=== PATIENT | male | born 1965 | race Caucasian/White ===

== ENCOUNTER 2019-08-11 15:11 | Emergency (ER) | payer MEDICARE, OTHER, SELFPAY ==
--- NOTE | ~2019-08-11 | XR_ITS ---
EXAMINATION: XR elbow RT min 3V INDICATION: Right elbow pain TECHNIQUE: Four views of the right elbow were obtained. COMPARISON: None available FINDINGS: There is no fracture. Moderate elbow osteoarthritis is noted. There is soft tissue swelling dorsal to the olecranon. No joint effusion is identified. IMPRESSION: 1. Soft tissue swelling dorsal to the olecranon without acute osseous findings. Reviewed, dictated and finalized at location A.
[2019-08-11 15:32] VITALS: BP 116/72; PULSE 123; RESP 18; TEMP 36.4; O2SAT 99
[2019-08-11 15:40] VITALS: BP 138/83; PULSE 69; RESP 18; TEMP 36.4; O2SAT 100
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
== END 2019-08-11 16:15 | disposition home or self-care (01) ==
PROVIDERS: Emergency Provider Nurse Practitioner; PCP Internal Medicine Endocrinology, Diabetes & Metabolism
DX: S59.901A Unspecified injury of right elbow, initial encounter (principal); E11.9 Type 2 diabetes mellitus without complications; V18.0XXA Pedal cycle driver injured in noncollision transport accident in nontraffic accident, initial encounter
CPT/HCPCS: 73080; 99213; G0463

== ENCOUNTER 2020-02-19 11:26 | Emergency (ER) | payer MEDICARE, OTHER, SELFPAY ==
[2020-02-19 11:38] VITALS: BP 105/59; PULSE 87; RESP 18; TEMP 36.7; O2SAT 98
--- NOTE | 2020-02-19 11:49 | ED.GENADULT ---
HPI - General Adult General Chief complaint: Skin/Abscess/Foreign Body Stated complaint: rash Time Seen by Provider: 02/19/20 11:49 Source: patient Mode of arrival: ambulatory Limitations: no limitations History of Present Illness HPI narrative: 54-year-old male patient presents to the [facility] with complaints of a rash to the left side of the abdomen that he noticed when he first woke up this morning. Patient states it does itch and does have a burning pain to it. Patient states he did notice some pain to the left side of the ribs yesterday. Patient denies any fevers, body aches or chills. Patient states he did try using some [id number] antiitch cream on the rash without success. Related Data Home Medications Medication Instructions Recorded Confirmed amlodipine 08/11/19 atorvastatin 08/11/19 desvenlafaxine succinate mg PO 08/11/19 fenofibrate micronized mg 08/11/19 finasteride mg 08/11/19 fluoxetine mg 08/11/19 levothyroxine 08/11/19 testosterone cypionate mg 08/11/19 [place] 02/19/20 dulaglutide [Trulicity] mg SUBCUT 02/19/20 lisinopril 02/19/20 ramelteon mg PO 02/19/20 ramelteon mg PO 02/19/20 tamsulosin mg PO 02/19/20 Allergies Allergy/AdvReac Type Severity Reaction Status Date / Time Penicillins Allergy Mild RASH AN Verified 08/24/18 04:59 INFANT Review of Systems Review of Systems: Narrative: CONSTITUTIONAL: Denies fever, chills, or sweats. EYES: Denies visual changes, redness, or discharge. ENT: Denies rhinorrhea, congestion, sore throat, or otalgia. CARDIOVASCULAR: Denies chest pain, palpitations, or edema. RESPIRATORY: Denies cough or dyspnea. GASTROINTESTINAL: Denies abdominal pain, nausea, vomiting, or diarrhea. GENITOURINARY: Denies dysuria or hematuria. SKIN: Positive rash to the left abdomen with itching and burning pain since this morning MUSCULOSKELETAL: Denies back pain, joint pain, or myalgia. NEUROLOGIC: Denies headache, numbness, or weakness. PSYCHIATRIC: Denies anxiety or depression. [facility] Past Medical History Medical History (Updated 02/19/20 @ 11:56 by SHANA Espinoza) Anxiety Bunion, right foot Depression committed suicide in 2006 Diabetes Fractures Clavicle right elbow Genitourinary disorder Prostate problems GERD (gastroesophageal reflux disease) High cholesterol HTN (hypertension) Surgery, elective Ganglion cyst removed x3 Surgical History Surgical History (Updated 02/19/20 @ 11:51 by SHANA Espinoza) Hx of tonsillectomy Family History Family History Other Heart disease Social History Social History Smoking status: Never smoker Alcohol intake: never Comments At the time of my signature I agree with nursing past medical history, surgical, social, and family history. There is no relevant family history pertinent to the presenting complaint. Exam Narrative: Exam Narrative: GENERAL: Well-appearing, well-nourished, and in no acute distress. HEAD: Normocephalic, atraumatic. EYES: PERRLA and EOMI. ENT: Nares clear, no rhinorrhea or epistaxis. Mucous membranes moist. NECK: Supple. No lymphadenopathy CHEST: Clear to auscultation. No respiratory distress. HEART: Regular rate and rhythm. No murmur heard. Normal peripheral pulses. ABDOMEN: Soft, nontender, nondistended, normal active bowel sounds. EXTREMITIES: Normal range of motion. No edema. SKIN: Warm, dry, patient has a pustular rash on erythemic base that is noted along the T9 dermatome of the left side of the abdomen. It does not cross midline. There also seems to be a pustular rash noted to the left upper back along the T6 dermatome. There is no active discharge at this time. NEURO: No focal deficits. Alert and oriented x3. Course Vital Signs Vital signs: Vital signs reviewed Medical Decision Making Differential Diagnosis Differential
== END 2020-02-19 12:02 | disposition home or self-care (01) ==
PROVIDERS: Emergency Provider Nurse Practitioner Family; PCP Internal Medicine Endocrinology, Diabetes & Metabolism
DX: B02.9 Zoster without complications (principal); F41.9 Anxiety disorder, unspecified; F32.9 Major depressive disorder, single episode, unspecified; E11.9 Type 2 diabetes mellitus without complications; K21.9 Gastro-esophageal reflux disease without esophagitis; E78.00 Pure hypercholesterolemia, unspecified; I10 Essential (primary) hypertension
CPT/HCPCS: 99213; G0463

== ENCOUNTER 2020-12-23 04:35 | Emergency (ER) | payer MEDICARE, OTHER, SELFPAY ==
[2020-12-23 04:39] VITALS: BP 95/56; PULSE 73; RESP 20; TEMP 36.3; O2SAT 99
[2020-12-23 05:24] VITALS: BP 142/96; PULSE 79; PULSE 82; RESP 22; O2SAT 97
[2020-12-23] MEDS: diphenhydrAMINE HCl INJ 50 MG/ML VIAL 25 MG IV PUSH (05:57)
--- NOTE | 2020-12-23 06:05 | PC.NURSE ---
Pt arrives to ED with daughter and c/o involuntary muscle jerking and spasms, intermittent x 2 days. pt denies any new meds, ingestion of stimulants/caffeine, or any other changes. Is on many prescribed medications, including pristique, mirapex, prozac. lights dimmed. call light in reach. will continue to monitor.
--- NOTE | 2020-12-23 06:16 | ED.GENADULT ---
HPI - General Adult General Chief complaint: Unspecified Stated complaint: tics? intermittent muscle tightenging and twitchin Time Seen by Provider: 12/23/20 05:02 History of Present Illness HPI narrative: Patient is a 55-year-old male who presents the ER with muscle twitches and spasms. Began last night. This is happened to him nightly for last 3 days and they have gotten worse. Also makes him expressive facial movements like he is wincing or grimacing. He is not in pain and has difficulty controlling him. Patient is on multiple medications including lithium, Mirapex, and Topamax. He does take the Mirapex at night and symptoms seem to occur at night. No loss of consciousness/bladder/bowel. Related Data Home Medications Medication Instructions Recorded Confirmed amlodipine 08/11/19 atorvastatin 08/11/19 fenofibrate micronized mg 08/11/19 finasteride mg 08/11/19 fluoxetine 40 mg PO DAILY 08/11/19 levothyroxine 08/11/19 testosterone cypionate mg 08/11/19 lisinopril 02/19/20 lithium carbonate 900 mg PO BID 02/19/20 12/23/20 tamsulosin mg PO 02/19/20 Allergies Allergy/AdvReac Type Severity Reaction Status Date / Time Penicillins Allergy Mild RASH AN Verified 12/23/20 04:42 Review of Systems Review of Systems: All systems reviewed & are unremarkable except as noted in HPI and below Constitutional: Constitutional: Denies chills and Denies fever(s) ENT: Reports dry mouth, Denies nasal congestion and Denies sore throat Gastrointestinal: Gastrointestinal: Denies abdominal pain, Denies nausea and Denies vomiting Musculoskeletal: Musculoskeletal: Denies arthralgias, Denies joint swelling, Reports muscle cramps and Reports neck pain (Chronic) Neurologic: Denies headache(s), Denies focal weakness and Reports seizure-like activity Psychiatric: Psychiatric: Denies anxiety and Denies depression PMF Past Medical History Medical History (Updated 12/23/20 @ 06:58 by Bhaskar Fofana MD) Anxiety Bunion, right foot Depression committed suicide in 2006 Diabetes Fractures Clavicle right elbow Genitourinary disorder Prostate problems GERD (gastroesophageal reflux disease) High cholesterol HTN (hypertension) Surgery, elective Ganglion cyst removed x3 Surgical History Surgical History (Updated 02/19/20 @ 11:51 by SHANA Espinoza) Hx of tonsillectomy Family History Family History Other Heart disease Social History Social History Smoking status: Never smoker Alcohol intake: never Exam Narrative: GENERAL: Well-appearing, well-nourished, and in no acute distress. HEAD: Normocephalic, atraumatic. EYES: PERRLA and EOMI. ENT: Mucous membranes moist. CHEST: Clear to auscultation. No respiratory distress. HEART: Regular rate and rhythm. Normal peripheral pulses. EXTREMITIES: Normal range of motion. No edema. SKIN: Warm, dry, no rash. NEURO: No focal deficits. Intermittent grimacing and squinting of the eyes. No rhythmic movements such as seizure. Patient is persistently moving his arms and legs and stretching type motions. He is able to briefly stop the movements at times. Alert and oriented x3. PSYCH: Normal mood and affect. Course Course Emergency Course: Seems to have dyskinesia related to medications. Strongly suspect Mirapex. Patient's movements have improved significantly with IV Benadryl. Labs pending. Reevaluation(s) Reevaluation #1: Patient informed results. He does not wish to have another IV dose of Benadryl but will take an oral pill before he leaves. Encouraged hydration at home. Patient will discontinue Mirapex and contact his PCP. Date: 12/23/20 Time: 06:56 Vital Signs Vital signs: Vital Signs Temperature 97.3 F L 12/23/20 04:39 Pulse Rate 73 12/23/20 04:39 Respiratory Rate 20 12/23/20 04:39 Blood Pressure 95/56
[2020-12-23 06:26] LABS: Anion Gap 10 mmol/L (8-16); Blood Urea Nitrogen 40 mg/dL (9-20); Calcium 10.2 mg/dL (8.4-10.2); Carbon Dioxide 21 mmol/L (22-30); Chloride 107 mmol/L (98-107); Estimated CRCL calculation 48 ml/min; Estimated Glomerular Filt Rate 42; Glucose 112 mg/dL (65-110); Magnesium 2.4 mg/dL (1.6-2.3); Potassium 5.5 mmol/L (3.4-5.0); Sodium 138 mmol/L (137-145)
[2020-12-23 06:46] LABS: Lithium 1.2 mmol/L (0.6-1.2)
[2020-12-23] MEDS: diphenhydrAMINE HCl CAP 25 MG CAPSULE PO (07:24)
[2020-12-23 07:31] VITALS: BP 133/86; PULSE 60; RESP 18; O2SAT 96
== END 2020-12-23 07:33 | disposition home or self-care (01) ==
PROVIDERS: Emergency Provider Emergency Medicine; PCP Internal Medicine Endocrinology, Diabetes & Metabolism
DX: G24.09 Other drug induced dystonia (principal); T42.8X5A Adverse effect of antiparkinsonism drugs and other central muscle-tone depressants, initial encounter; K21.9 Gastro-esophageal reflux disease without esophagitis; E78.00 Pure hypercholesterolemia, unspecified; I10 Essential (primary) hypertension; E11.9 Type 2 diabetes mellitus without complications; F32.9 Major depressive disorder, single episode, unspecified; F41.9 Anxiety disorder, unspecified
CPT/HCPCS: 36415; 80048; 80178; 83735; 96374; 99284; A9270; J1200

== ENCOUNTER 2021-10-10 15:49 | Emergency (ER) | payer MEDICARE, OTHER, SELFPAY ==
[2021-10-10 16:18] VITALS: BP 112/80; PULSE 94; RESP 16; TEMP 36.4; O2SAT 97
--- NOTE | 2021-10-10 17:03 | ED.WOUNDLAC ---
HPI - Wound/Laceration General Chief Complaint: Wound/Laceration Stated Complaint: Abscess on Back Time Seen by Provider: 10/10/21 17:03 Source: patient Mode of arrival: ambulatory Limitations: no limitations History of Present Illness HPI narrative: 56-year-old male presents with bump to left back area. States that bump is off and on festering and his daughter popped it open. Just popped open 2 days ago. States that pain has improved. Is here to have bump removed . Has not seen his primary care physician for this problem. Has not contacted a ripper operator. States they take too long to get in with. All systems reviewed and negative except as noted above. Related Data Home Medications Medication Instructions Recorded Confirmed amlodipine 10 mg tablet tablet 10/10/21 atorvastatin 20 mg tablet tablet 10/10/21 dapagliflozin 10 mg tablet tablet 10/10/21 ([facility]) desvenlafaxine succinate 100 mg tablet PO 10/10/21 tablet,extended release 24 hr desvenlafaxine succinate 50 mg tablet PO 10/10/21 tablet,extended release 24 hr fenofibrate micronized 134 mg cap 10/10/21 capsule finasteride 5 mg tablet tablet 10/10/21 fluoxetine 20 mg capsule cap 10/10/21 gabapentin 100 mg capsule cap 10/10/21 hydroxyzine HCl 50 mg tablet tablet 10/10/21 levothyroxine 150 mcg tablet tablet 10/10/21 lisinopril 20 mg tablet tablet 10/10/21 metformin 500 mg tablet tablet 10/10/21 tamsulosin 0.4 mg capsule cap PO 10/10/21 testosterone cypionate 200 mg/mL ea 10/10/21 intramuscular oil Allergies Allergy/AdvReac Type Severity Reaction Status Date / Time No Known Allergies Allergy Verified 10/10/21 16:15 Review of Systems Review of Systems: CONSTITUTIONAL: Denies fever, chills, or sweats. EYES: Denies visual changes, redness, or discharge. ENT: Denies rhinorrhea, congestion, sore throat, or otalgia. CARDIOVASCULAR: Denies chest pain, palpitations, or edema. RESPIRATORY: Denies cough or dyspnea. GASTROINTESTINAL: Denies abdominal pain, nausea, vomiting, or diarrhea. GENITOURINARY: Denies dysuria or hematuria. SKIN: Denies rash or itching. Reports bump to middle of back for 1 year. MUSCULOSKELETAL: Denies back pain, joint pain, or myalgia. NEUROLOGIC: Denies headache, numbness, or weakness. PSYCHIATRIC: Denies anxiety or depression. All other systems reviewed are negative, except as documented in HPI. PMFSH Comments At time of signature, agree with nursing past medical, surgical, social and family history. There is no relevant family history pertinent to the presenting complaint. Exam Narrative: GENERAL: This is a well-nourished, well-developed patient, in no apparent distress. HEAD: normocephalic, atraumatic. EYES: PERRL. Sclera clear/white. Vision is grossly intact. EARS: External ears normal NOSE: External nose normal NECK: Neck supple, non-tender without lymphadenopathy, masses or thyromegaly. CARDIOVASCULAR: Regular rate and rhythm without murmurs, gallops, or rubs. RESPIRATORY: Clear to auscultation. Breath sounds equal bilaterally. No wheezes, rales, or rhonchi. SKIN: warm, Dry, intact with no suspicious lesions or rash, good texture and turgor. There is a epidermoid cyst to middle of back, approximately 3 cm diameter. Firm. No fluctuance. Mild erythema. NEURO: awake, alert, and oriented to person, place and time. There were no obvious focal neurologic abnormalities. EXTREMITIES: No joint tenderness, effusion, or edema noted. Back/Spine/Pelvis: Back/spine/pelvis image: 1. Epidermoid cyst Course Course Level of Care: Express Care Visit Vital Signs Vital signs: Vital Signs Temperature 36.4 C L 10/10/21 16:18 Pulse Rate 94 10/10/21 16:18 Respiratory Rate 16 10/10/21 16:18 Blood Pressure 112/80 10/10/21 16:18 Pulse Oximetry 97 10/10/21 16:18 Oxygen Delivery Room Air 10/10/21 16:18 Temperature 36.4 C L 10/10/21 16:18 Pulse Rate 94 10/10/21 16:18 Respirat
== END 2021-10-10 17:13 | disposition home or self-care (01) ==
PROVIDERS: Emergency Provider Nurse Practitioner Family
DX: L72.0 Epidermal cyst (principal); E78.00 Pure hypercholesterolemia, unspecified; I10 Essential (primary) hypertension; E03.9 Hypothyroidism, unspecified
CPT/HCPCS: 99203; G0463

== ENCOUNTER 2021-10-13 21:09 | Emergency (ER) | payer MEDICARE, OTHER, SELFPAY ==
[2021-10-13 21:11] VITALS: BP 142/76; PULSE 99; RESP 16; TEMP 36.8; O2SAT 98
--- NOTE | 2021-10-13 22:06 | ED.SKABFB ---
HPI - Skin/Abscess/Foreign Bdy General Chief complaint: Skin/Abscess/Foreign Body Stated complaint: abcess on my back Time Seen by Provider: 10/13/21 21:54 Source: patient Mode of arrival: ambulatory Limitations: no limitations History of Present Illness HPI narrative: This is a 48-year-old male that presents to the emergency department for a cyst present on his back over the last several months. Reports the area rubs on chairs when he sits down and is irritative. He tried to get into a rehab technician, but they were unable to see him until next year. Denies fever or erythema. Related Data Home Medications Medication Instructions Recorded Confirmed amlodipine 10 mg tablet 08/11/19 atorvastatin 20 mg tablet 08/11/19 fenofibrate micronized 134 mg mg 08/11/19 capsule finasteride 5 mg tablet mg 08/11/19 fluoxetine 20 mg capsule 40 mg PO DAILY 08/11/19 levothyroxine 175 mcg tablet 08/11/19 testosterone cypionate 200 mg/mL mg 08/11/19 intramuscular oil lisinopril 40 mg tablet 02/19/20 lithium carbonate 450 mg 900 mg PO BID 02/19/20 12/23/20 tablet,extended release tamsulosin 0.4 mg capsule mg PO 02/19/20 Allergies Allergy/AdvReac Type Severity Reaction Status Date / Time Penicillins Allergy Mild RASH AN Verified 10/13/21 21:11 INFANT Review of Systems Review of Systems: CONSTITUTIONAL: Denies fever SKIN: Reports cyst All systems reviewed & are unremarkable except as noted in HPI and below PMFSH Past Medical History Medical History (Updated 10/13/21 @ 22:13 by Aga Caldera PA-C) Anxiety Bunion, right foot Depression committed suicide in 2006 Diabetes Fractures Clavicle right elbow Genitourinary disorder Prostate problems GERD (gastroesophageal reflux disease) High cholesterol HTN (hypertension) Surgery, elective Ganglion cyst removed x3 Surgical History Surgical History (Updated 02/19/20 @ 11:51 by SHANA Espinoza) Hx of tonsillectomy Family History Family History Other Heart disease Social History Social History Smoking status: Never smoker Alcohol intake: never Exam Narrative: GENERAL: Well-appearing, well-nourished, and in no acute distress. HEAD: Normocephalic, atraumatic. EYES: EOMI. EXTREMITIES: Normal range of motion. No edema. SKIN: Warm, dry, no rash. Right upper back with 2.5cm cystic area. Mild overlying redness. No fluctuance to suggest abscess NEURO: No focal deficits. Alert and oriented x3. PSYCH: Normal mood and affect Course Vital Signs Vital signs: Vital Signs Temperature 98.2 F 10/13/21 21:11 Pulse Rate 99 10/13/21 21:11 Respiratory Rate 16 10/13/21 21:11 Blood Pressure 142/76 H 10/13/21 21:11 Pulse Oximetry 98 10/13/21 21:11 Temperature 98.2 F 10/13/21 21:11 Pulse Rate 99 10/13/21 21:11 Respiratory Rate 16 10/13/21 21:11 Blood Pressure 142/76 H 10/13/21 21:11 Pulse Oximetry 98 10/13/21 21:11 MDM - Skin/Abscess/Foreign Bdy MDM Narrative Medical decision making narrative: Patient presents emergency department for cyst on his back. This has been present for months. There is some mild overlying redness. No fluctuance to suggest abscess. Patient will be started on oral antibiotics. Will be given follow-up with plastic surgery. He was given warnings to return to the ER Critical Care Time Critical Care Time Critical Care Time: No Discharge Plan Discharge Clinical Impression: Cyst Patient Disposition: Home, Self-Care Condition: Stable Instructions: Antibiotic Form, Cyst (ED) Additional Instructions: Return if symptoms worsen or concerns: any increase in redness, swelling, pain or fever over 101 Take antibiotics as directed. Clean wound with mild soapy water. Apply antibiotic ointment daily Follow up with plastic surgery Prescriptions: N
== END 2021-10-13 22:28 | disposition home or self-care (01) ==
PROVIDERS: Emergency Provider Emergency Medicine; PCP Internal Medicine Endocrinology, Diabetes & Metabolism
DX: L72.9 Follicular cyst of the skin and subcutaneous tissue, unspecified (principal); E78.00 Pure hypercholesterolemia, unspecified; I10 Essential (primary) hypertension; N42.9 Disorder of prostate, unspecified; K21.9 Gastro-esophageal reflux disease without esophagitis; F41.9 Anxiety disorder, unspecified; F32.A Depression, unspecified
CPT/HCPCS: 99283

== ENCOUNTER 2022-01-08 16:30 | Emergency (ER) | payer MEDICARE, OTHER, SELFPAY ==
[2022-01-08 17:27] VITALS: BP 148/83; PULSE 97; RESP 14; TEMP 36.4; O2SAT 98
--- NOTE | 2022-01-08 17:56 | ED.WOUNDLAC ---
HPI - Wound/Laceration General Chief Complaint: Wound/Laceration Stated Complaint: right finger laceration Time Seen by Provider: 01/08/22 17:49 History of Present Illness HPI narrative: Patient is a 56-year-old [id number] male here for evaluation of a wound sustained to his right second fingertip earlier today. 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 States that he presented to the ED because he could not get the bleeding to stop. At time of presentation the bleeding is controlled. He is unsure of his last tetanus shot. Denies any difficulty moving the digit, numbness or tingling. Related Data Home Medications Medication Instructions Recorded Confirmed amlodipine 10 mg tablet 08/11/19 atorvastatin 20 mg tablet 08/11/19 fenofibrate micronized 134 mg mg 08/11/19 capsule finasteride 5 mg tablet mg 08/11/19 fluoxetine 20 mg capsule 40 mg PO DAILY 08/11/19 levothyroxine 175 mcg tablet 08/11/19 testosterone cypionate 200 mg/mL mg 08/11/19 intramuscular oil lisinopril 40 mg tablet 02/19/20 lithium carbonate 450 mg 900 mg PO BID 02/19/20 12/23/20 tablet,extended release tamsulosin 0.4 mg capsule mg PO 02/19/20 amlodipine 10 mg tablet tablet 10/10/21 atorvastatin 20 mg tablet tablet 10/10/21 dapagliflozin 10 mg tablet tablet 10/10/21 ([facility]) desvenlafaxine succinate 100 mg tablet PO 10/10/21 tablet,extended release 24 hr desvenlafaxine succinate 50 mg tablet PO 10/10/21 tablet,extended release 24 hr fenofibrate micronized 134 mg cap 10/10/21 capsule finasteride 5 mg tablet tablet 10/10/21 fluoxetine 20 mg capsule cap 10/10/21 gabapentin 100 mg capsule cap 10/10/21 hydroxyzine HCl 50 mg tablet tablet 10/10/21 levothyroxine 150 mcg tablet tablet 10/10/21 lisinopril 20 mg tablet tablet 10/10/21 metformin 500 mg tablet tablet 10/10/21 tamsulosin 0.4 mg capsule cap PO 10/10/21 testosterone cypionate 200 mg/mL ea 10/10/21 intramuscular oil Allergies Allergy/AdvReac Type Severity Reaction Status Date / Time Penicillins Allergy Mild RASH AN Verified 01/08/22 17:48 Review of Systems Review of Systems: Gen.: Denies fevers or chills Eyes: Denies eye pain or visual change ENT: Denies congestion Respiratory: Denies shortness of breath or cough CV: Denies chest pain or palpitations GI: Denies abdominal pain nausea, emesis or diarrhea denies burning, urgency, frequency or hematuria Musculoskeletal: Denies back pain or muscle pain Neuro: Denies numbness, tingling, weakness or focal weakness Skin: Reports laceration to right second digit Except as documented, all other systems reviewed and negative [facility] Past Medical History Medical History Anxiety Bunion, right foot Depression committed suicide in 2006 Diabetes Fractures Clavicle right elbow Genitourinary disorder Prostate problems GERD (gastroesophageal reflux disease) High cholesterol HTN (hypertension) Surgery, elective Ganglion cyst removed x3 Surgical History Surgical History Hx of tonsillectomy Family History Family History Other Heart disease Social History Social History (System 12/03/21 @ 12:53 by Miriam Hoskins) Smoking status: Never smoker Alcohol intake: never Exam Narrative: Gen: Alert, oriented, no acute distress. Eyes: EOMI, no icterus Pulm: Respirations even and unlabored, symmetric thorax expansion, no audible stridor or visible cyanosis CV: Brisk capillary refill. GI: No distension, no voluntary/involuntary guarding Neuro: AOx4, moves all extremities without apparent difficulty or weakness, follows commands MSK: Full range of motion in right hand and fingers. Skin: Patient arredondo
[2022-01-08] MEDS: TETANUS,DIPHTHERIA,AC PERTUSSIS ADULT (0.5 ML) BOOSTRIX IM (18:09)
== END 2022-01-08 18:41 | disposition home or self-care (01) ==
PROVIDERS: Emergency Provider General Practice
DX: S60.410A Abrasion of right index finger, initial encounter (principal); Z23 Encounter for immunization; E11.9 Type 2 diabetes mellitus without complications; E78.00 Pure hypercholesterolemia, unspecified; I10 Essential (primary) hypertension; K21.9 Gastro-esophageal reflux disease without esophagitis; F41.9 Anxiety disorder, unspecified; F32.A Depression, unspecified; Z79.84 Long term (current) use of oral hypoglycemic drugs; W26.8XXA Contact with other sharp object(s), not elsewhere classified, initial encounter
CPT/HCPCS: 90471; 90715; 99282

== ENCOUNTER 2022-02-28 10:15 | Emergency (ER) | payer MEDICARE, OTHER, SELFPAY ==
--- NOTE | 2022-02-28 10:40 | ED.URI ---
HPI - URI/Sore Throat General Chief Complaint: Upper Respiratory Infection Stated Complaint: flu like sx Time Seen by Provider: 02/28/22 11:31 Source: patient and RN notes reviewed Mode of arrival: ambulatory Limitations: no limitations History of Present Illness HPI Narrative: 56-year-old male presents concern for fever, chills, cough, rhinorrhea, headache, sore throat for 5 days. Reports his daughter had similar symptoms. Reports he has been trying some [id number] medications without relief. MD elicited complaint: fever and cough Related Data Home Medications Medication Instructions Recorded Confirmed fluoxetine 20 mg capsule 40 mg PO DAILY 08/11/19 02/28/22 levothyroxine 175 mcg tablet 175 mcg DIRECTED 08/11/19 02/28/22 testosterone cypionate 200 mg/mL 200 mg DIRECTED 08/11/19 02/28/22 intramuscular oil lisinopril 40 mg tablet 40 mg PO DIRECTED 02/19/20 02/28/22 tamsulosin 0.4 mg capsule 0.4 mg PO DIRECTED 02/19/20 02/28/22 amlodipine 10 mg tablet 10 tablet DIRECTED 10/10/21 02/28/22 atorvastatin 20 mg tablet 20 tablet DIRECTED 10/10/21 02/28/22 desvenlafaxine succinate 100 mg 1 tablet PO DIRECTED 10/10/21 02/28/22 tablet,extended release 24 hr desvenlafaxine succinate 50 mg 1 tablet PO DIRECTED 10/10/21 02/28/22 tablet,extended release 24 hr fenofibrate micronized 134 mg 134 mg DIRECTED 10/10/21 02/28/22 capsule finasteride 5 mg tablet 5 mg DIRECTED 10/10/21 02/28/22 hydroxyzine HCl 50 mg tablet 50 mg DIRECTED 10/10/21 02/28/22 lisinopril 20 mg tablet 1 mg DIRECTED 10/10/21 02/28/22 Allergies Allergy/AdvReac Type Severity Reaction Status Date / Time Penicillins Allergy Mild RASH AN Verified 01/08/22 17:48 Review of Systems Review of Systems: CONSTITUTIONAL: Reports malaise, chills, sweats, or fever. EYES: Denies visual changes, redness, or discharge. ENT: Reports rhinorrhea, congestion, and sore throat. CARDIOVASCULAR: Denies chest pain, palpitations, or edema. RESPIRATORY: Reports cough. Denies dyspnea. GASTROINTESTINAL: Denies abdominal pain, nausea, vomiting, diarrhea SKIN: Denies rash or itching. MUSCULOSKELETAL: Reports myalgia. NEUROLOGIC: Reports headache. All systems reviewed & are unremarkable except as noted in HPI and below PMFSH Past Medical History Medical History Anxiety Bunion, right foot Depression committed suicide in 2006 Diabetes Fractures Clavicle right elbow Genitourinary disorder Prostate problems GERD (gastroesophageal reflux disease) High cholesterol HTN (hypertension) Surgery, elective Ganglion cyst removed x3 Surgical History Surgical History Hx of tonsillectomy Family History Family History Other Heart disease Social History Social History (System 12/03/21 @ 12:53 by Miriam Hoskins) Smoking status: Never smoker Alcohol intake: never Comments At time of signature, agree with nursing past medical, surgical, social and family history. There is no relevant family history pertinent to the presenting complaint Exam Narrative: GENERAL: nontoxic appearing and in no acute distress. HEAD: Normocephalic EYES: PERRLA, conjunctivae clear ENT: Nares clear, turbinates edematous and erythematous, clear discharge. Mucous membranes moist. TM pearly lilly with dull light reflex bilaterally; no tragal tenderness. Oropharynx not erythematous without lesions. Tonsils not enlarged and without exudate, no drooling, no hoarseness, no trismus, uvula midline. NECK: Supple. No lymphadenopathy CHEST: Scattered expiratory wheeze, otherwise Clear to auscultation, breath sounds equal. No rhonchi, rales, or stridor. No respiratory distress, speaks in full sentences. HEART: Regular rate and rhythm. No murmur heard. SKIN: Warm, dry, no pasquale
[2022-02-28 11:00] VITALS: BP 116/70; PULSE 92; RESP 16; TEMP 37.8; O2SAT 97
== END 2022-02-28 11:51 | disposition home or self-care (01) ==
PROVIDERS: Emergency Provider Nurse Practitioner
DX: J10.1 Influenza due to other identified influenza virus with other respiratory manifestations (principal); K21.9 Gastro-esophageal reflux disease without esophagitis; E78.00 Pure hypercholesterolemia, unspecified; I10 Essential (primary) hypertension; E11.9 Type 2 diabetes mellitus without complications; F41.9 Anxiety disorder, unspecified; F32.A Depression, unspecified
CPT/HCPCS: 87804; 99213; G0463

== ENCOUNTER 2022-06-29 08:00 | Outpatient (RCR) | payer MEDICARE, OTHER, SELFPAY | END 2022-06-29 23:59 | disposition home or self-care (01) | LOC: ANHAUDIO 08:00 | PROVIDERS: PCP Nurse Practitioner Family; Visit Provider Nurse Practitioner Family | DX: Z46.1 Encounter for fitting and adjustment of hearing aid (principal) | CPT/HCPCS: 99199; V5264 ==

== ENCOUNTER 2024-10-17 14:30 | Outpatient (RCR) | payer SELFPAY | END 2024-10-17 23:59 | disposition home or self-care (01) | LOC: ANHAUDIO 14:30 | PROVIDERS: PCP Nurse Practitioner Family; Visit Provider Nurse Practitioner Family | DX: Z46.89 Encounter for fitting and adjustment of other specified devices (principal) | CPT/HCPCS: V5264 ==